=== PATIENT | female | born 1990 | race Caucasian/White ===

== ENCOUNTER 2017-05-19 00:19 | Emergency (ER) | payer OTHER ==
--- NOTE | 2017-05-19 00:30 | NUR ---
PT NOT IN LOBBY. INFORMED IN RESTROOM
--- NOTE | 2017-05-19 00:55 | NUR ---
CALLED AGAIN; NOT IN LOBBY
--- NOTE | 2017-05-19 01:00 | NUR ---
CALLED AGAIN; NO ANSWER.
== END 2017-05-19 01:03 | disposition left against medical advice (07) ==
LOC: ER 00:26
DX: Z53.21 Procedure and treatment not carried out due to patient leaving prior to being seen by health care provider (principal)